=== PATIENT | female | born 1970 | race Caucasian/White ===

== ENCOUNTER 2016-08-19 06:44 | Day surgery (SDC) | payer BC ==
--- NOTE | ~2016-08-19 | EGD ---
EGD REPORT [facility] [address] [address] NAME: MARGARETTE HENDERSON : [birth year] STATUS : REG [facility]#: [id number] AGE: 46 ADM/REG DATE : 08/19/16 MR#: [id number] REPORT SERV DATE: 08/19/16 DICTATED BY: JHOANA ANN DATE: 08/19/16 REPORT STATUS : Draft TRANSCRIBED BY: [facility] DATE: 08/19/16 Endoscopy Center Patient Name: Margarette Henderson Date of : 1970 Attending MD: JHOANA ANN, Procedure Date No Time: 08/19/2016 Procedure: Upper GI endoscopy Indications: Abdominal pain, Diarrhea Referring MD: PAM MAGANA Medicines: Propofol per Anesthesia Complications: No immediate complications. Estimated blood loss: None. Procedure: Pre-Anesthesia Assessment: - ASA Grade Assessment: II - A patient with mild systemic disease. After obtaining informed consent, the endoscope was passed under direct vision. Throughout the procedure, the patient's blood pressure, pulse, and oxygen saturations were monitored continuously. The GIF H190 [id number] was introduced through the mouth, and advanced to the second part of duodenum. The upper GI endoscopy was accomplished with ease. The patient tolerated the procedure well. Findings: The examined esophagus was normal. The Z-line was found 38 cm from the incisors. Mildly erythematous mucosa was found in the gastric body. Biopsies were taken with a cold forceps for Helicobacter pylori testing. Estimated blood loss: none. The duodenal bulb and 2nd part of the duodenum were normal. Biopsies were taken with a cold forceps for evaluation of celiac disease. Estimated blood loss: none. Impression: - Normal esophagus. - Z-line 38 cm from the incisors. - Erythematous mucosa in the gastric body. Biopsied. - Normal duodenal bulb and 2nd part of the duodenum. Biopsied. Recommendation: - Patient has a contact number available for emergencies. The signs and symptoms of potential delayed complications were discussed with the patient. Return to normal activities tomorrow. Written discharge instructions were provided to the patient. - Follow a low FODMAP diet. EGD REPORT [address] [address] NAME: MARGARETTE HENDERSON : [birth year] STATUS : REG [facility] [place] PAT#: [id number] AGE: 46 ADM/REG DATE : 08/19/16 MR#: [id number] REPORT SERV DATE: 08/19/16 DICTATED BY: JHOANA ANN DATE: 08/19/16 REPORT STATUS : Draft TRANSCRIBED BY: [employer] DATE: 08/19/16 - Discharge patient to home (with escort). - Continue present medications. - Await pathology results. - Return to GI clinic in 4 weeks. Procedure Code(s): --- Professional --- 60133, Esophagogastroduodenoscopy, flexible, transoral; with biopsy, single or multiple Diagnosis Code(s): --- Professional --- K31.9, Disease of stomach and duodenum, unspecified R10.9, Unspecified abdominal pain R19.7, Diarrhea, unspecified CPT copyright 2013 [employer]. All rights reserved. The codes documented in this report are preliminary and upon braille typist review may be revised to meet current compliance requirements. JHOANA ANN, 08/19/2016 8:29 AM This report has been signed electronically. Number of Addenda: 0 Note Initiated On: 08/19/2016 8:07 AM Scope Withdrawal Time 0 hours 0 minutes 0 seconds [address] [id number]
--- NOTE | ~2016-08-19 | EGD ---
EGD REPORT [facility] [address] [address] NAME: MARGARETTE HENDERSON : [birth year] [place] [facility] [place] [id number] AGE: 46 ADM/REG DATE : 08/19/16 MR#: [id number] REPORT SERV DATE: 08/19/16 DICTATED BY: JHOANA ANN DATE: 08/19/16 REPORT STATUS : Draft [facility] DATE: 08/19/16 Endoscopy Center Patient Name: Margarette Henderson Date of : 1970 Attending MD: JHOANA ANN, Procedure Date No Time: 08/19/2016 Procedure: Colonoscopy Indications: Abdominal pain, Clinically significant diarrhea of unexplained origin, Rectal bleeding, Abnormal CT of the GI tract Referring MD: PAM MAGANA Medicines: Propofol per Anesthesia Complications: No immediate complications. Estimated blood loss: None. Procedure: Pre-Anesthesia Assessment: - ASA Grade Assessment: II - A patient with mild systemic disease. After I obtained informed consent, the scope was passed under direct vision. Throughout the procedure, the patient's blood pressure, pulse, and oxygen saturations were monitored continuously. The PCF [id number] was introduced through the anus and advanced to 10 cm into the ileum. The colonoscopy was performed with ease. The patient tolerated the procedure well. The quality of the bowel preparation was good. Findings: The perianal exam was abnormal. Findings include skin tags. Scattered inflammation, mild in severity and characterized by congestion (edema), erythema and aphthous ulcerations was found in the terminal ileum. Biopsies were taken with a cold forceps for histology. Estimated blood loss: none. Localized mild inflammation characterized by congestion (edema), erythema and aphthous ulcerations was found in the cecum and at the ileocecal valve. Biopsies were taken with a cold forceps for histology. Estimated blood loss: none. A sessile polyp was found in the sigmoid colon. The polyp was 6 mm in size. The polyp was removed with a cold snare. Resection and retrieval were complete. Estimated blood loss: none. Impression: - Perianal skin tags found on perianal exam. - Ileitis. Biopsied. - Localized mild inflammation was found in the cecum and at the ileocecal valve secondary to colitis. Biopsied. - One 6 mm polyp in the sigmoid colon. Resected and retrieved. EGD REPORT [address] [place]. [address] NAME: MARGARETTE HENDERSON : [birth year] [place] [facility] [place] [id number] AGE: 46 ADM/REG DATE : 08/19/16 MR#: [id number] REPORT SERV DATE: 08/19/16 DICTATED BY: JHOANA ANN DATE: 08/19/16 REPORT STATUS : Draft TRANSCRIBED BY: [employer] DATE: 08/19/16 Recommendation: - Patient has a contact number available for emergencies. The signs and symptoms of potential delayed complications were discussed with the patient. Return to normal activities tomorrow. Written discharge instructions were provided to the patient. - Follow a low FODMAP diet. - Discharge patient to home (with escort). - Continue present medications. - Await pathology results. - Return to GI clinic in 2 weeks. - Repeat colonoscopy in 5 years for surveillance. Procedure Code(s): --- Professional --- 13989, Colonoscopy, flexible, proximal to splenic flexure; with removal of tumor(s), polyp(s), or other lesion(s) by snare technique 98328, 59, Colonoscopy, flexible, proximal to splenic flexure; with biopsy, single or multiple Diagnosis Code(s): --- Professional --- K64.4, Residual hemorrhoidal skin tags K52.9, Noninfective gastroenteritis and colitis, unspecified D12.5, Benign neoplasm of sigmoid colon R10.9, Unspecified abdominal pain R19.7, Diarrhea, unspecified K62.5, Hemorrhage of anus and rectum R93.3, Abnormal findings on diagnostic imaging of other parts of digestive tract CPT copyright 2013 [employer]. All rights reserved. The codes documented in this report are preliminary and upon homoeopath review may be revised to meet current compliance requirements. JHOANA ANN, 08/19/2016 9:01 AM This report has been signed electronically. Number of Addenda: 0 Note Initiated On: 08/19/2016 8:05 AM Scope Withdrawal Time 0 hours 17 minutes 54 seconds [id number] [id number]
[~2016-08-19 06:44] MED LIST: BENICAR20 PO; MULTIVIT/MIN PO; OS500+D PO; PROBIOTIC PO; SINGULAIR1 PO; TRAZ50 PO; VITAMIN B-122500 MCG SL; VITC500 PO; ZOCOR10 PO; ZYRTEC ALLGY10 MG PO
== END 2016-08-19 23:59 | disposition home or self-care (01) ==
LOC: DMU 06:44
PROVIDERS: Internal Medicine Gastroenterology
PROC: 0DBC8ZX Excision of Ileocecal Valve, Via Natural or Artificial Opening Endoscopic, Diagnostic (ICD-10-PCS; 2016-08-19)
PROC: 0DBN8ZX Excision of Sigmoid Colon, Via Natural or Artificial Opening Endoscopic, Diagnostic (ICD-10-PCS; 2016-08-19)
PROC: 0DB68ZX Excision of Stomach, Via Natural or Artificial Opening Endoscopic, Diagnostic (ICD-10-PCS; principal; 2016-08-19 08:30)
PROC: 0DBH8ZX Excision of Cecum, Via Natural or Artificial Opening Endoscopic, Diagnostic (ICD-10-PCS; 2016-08-19 08:30)
PROC: 0DBB8ZX Excision of Ileum, Via Natural or Artificial Opening Endoscopic, Diagnostic (ICD-10-PCS; 2016-08-19 08:30)
DX: K52.9 Noninfective gastroenteritis and colitis, unspecified (principal); K63.5 Polyp of colon; K29.50 Unspecified chronic gastritis without bleeding; I10 Essential (primary) hypertension; E03.9 Hypothyroidism, unspecified; G25.81 Restless legs syndrome; J45.909 Unspecified asthma, uncomplicated; E78.00 Pure hypercholesterolemia, unspecified; G89.29 Other chronic pain; M54.5 Low back pain; F41.9 Anxiety disorder, unspecified; Z88.0 Allergy status to penicillin; Z88.2 Allergy status to sulfonamides; Z79.891 Long term (current) use of opiate analgesic; Z79.899 Other long term (current) drug therapy; Z79.52 Long term (current) use of systemic steroids; Z98.890 Other specified postprocedural states
CPT/HCPCS: 88305